=== PATIENT | male | born 1985 | race Caucasian/White ===

== ENCOUNTER 2023-05-08 10:02 | Emergency (ER) | payer OTHER, SELFPAY ==
[2023-05-08 10:38] VITALS: BP 113/78; PULSE 86; RESP 20; TEMP 36.5; O2SAT 98; BMI 35.2
--- NOTE | 2023-05-08 12:46 | ED_ITS ---
HPI - GI Bleed General Date Seen: 05/08/23 Chief complaint: GI Bleed Stated complaint: stomach pain,blood in stool Time Seen by Provider: 05/08/23 12:46 Source: patient, RN notes reviewed and old records reviewed Mode of arrival: ambulatory Limitations: no limitations History of Present Illness HPI Narrative: Brice is a very pleasant 37-year-old gentleman with a history of colitis as a child who presents to the [facility] with blood in his stool. Patient notes the onset of dark stools with dark blood on May 03. This is associated with pain in the right periumbilical area. He notes no fever or chills. He states that when he was a young person he was diagnosed with colitis but never really had any follow-up after that. He states that he has had chronic diarrhea for 16 years and he takes Imodium which helps. He notes no recent trauma, fevers or chills, painful urination. He states that in spite of Imodium use he is getting very loose stools. He has not been lightheaded nor has he had a rapid heart rate or chest pain. His primary MD is Dr. Mccoy in [place]. Brice endorses daily alcohol use-beer only. Denies any history of withdrawal type symptoms. He does smoke as well. Related Data Home Medications Medication Instructions Recorded Confirmed dextroamphetamine-amphetamine ER 1 cap PO DAILY 05/08/23 05/08/23 30 mg 24hr capsule,extend release fluoxetine 10 mg capsule 10 mg PO DAILY 05/08/23 05/08/23 omeprazole 20 mg capsule,delayed 20 mg PO DAILY 05/08/23 05/08/23 release Previous Rx's Medication Instructions Recorded hydrocodone 5 mg-acetaminophen 325 1 tab PO Q4-6H PRN pain #14 tabs 05/08/23 mg tablet Allergies Allergy/AdvReac Type Severity Reaction Status Date / Time amoxicillin Allergy Verified 05/08/23 13:45 ceclor Allergy Uncoded 05/08/23 13:45 Review of Systems Status of ROS: Reports: 10 or more systems reviewed and unremarkable except as noted in History and below Const: Denies: fever, chills or fatigue Cardio: Denies: chest pain, edema, swelling of feet/ankles, lightheadedness or shortness of breath with exertion Resp: Denies: shortness of breath or cough GI: Reports: abdominal pain, diarrhea and blood in stool; Denies: nausea or vomiting : Denies: painful urination Musculo: Denies: back pain Endo: Denies: fatigue [facility] Social History Smoking Status: Former smoker Do you use any of these nicotine containing products: None Second hand tobacco smoke exposure: No How often do you have a drink containing alcohol: 4 or more times a week How many standard drinks containing alcohol do you have on a typical day: 3 or 4 How often do you have six or more drinks on one occasion: Never AUDIT-C Alcohol total score: 5 Non-prescribed substance use: denies use service: No Exam Narrative: Exam Narrative: Alert and oriented. No acute distress. Good color. Heart with regular rate and rhythm and lungs are clear. Abdomen is soft. There is tenderness with palpation just right of the umbilicus and somewhat inferior. No rebound tenderness here. Moving all extremities. Bowel sounds are present and normal. Const: Vital Signs, click to edit/add: Vital Signs - 24 hr 05/08/23 10:38 05/08/23 16:00 Temperature 97.7 F Pulse Rate [Pulse Oximeter] 86 74 Respiratory Rate 20 18 Blood Pressure [Ri ght Upper Arm] 113/78 128/95 H Pulse Oximetry 98 99 Oxygen Delivery Me thod Nasal Cannula Room Air Documenting provider has reviewed patient's vital signs: yes Course Course ED Course: Differential diagnosis includes but is not limited to colitis common ulcerative colitis, Crohn's disease, diverticulitis, gastroenteritis. Place IV and give 1 L of normal saline, lab draw to include CBC, comprehensive, CRP, lipase, type and screen. Plan on abdominal and pelvic CT with IV contrast at this time. Reevaluation(s) Reevaluation #1: Patient received 1 L of normal saline. Vital Signs Vital signs: Initial Vital Signs Temperature 97.7 F 05/08/23 10:38 Temperature Source Temporal Artery Scan 05/08/23 10:38 Pulse Rate 86 05/08/23 10:38 Pulse Rhythm Regular 05/08/23 10:38 Respiratory Rate 20 05/08/23 10:38 Blood Pressure 113/78 05/08/23 10:38 Blood Pressure Mean 89 05/08/23 10:38 Blood Pressure Position Sitting 05/08/23 10:38 Pulse Oximetry 98 05/08/23 10:38 Oxygen Delivery Method Nasal Cannula 05/08/23 10:38 Vital Signs Temperature 97.7 F 05/08/23 10:38 Pulse Rate 86 05/08/23 10:38 Respiratory Rate 20 05/08/23 10:38 Blood Pressure 113/78 05/08/23 10:38 Pulse Oximetry 98 05/08/23 10:38 Oxygen Delivery Method Nasal Cannula 05/08/23 10:38 Temperature 97.7 F 05/08/23 10:38 Pulse Rate 74 05/08/23 16:00 Respiratory Rate 18 05/08/23 16:00 Blood Pressure 128/95 H 05/08/23 16:00 Pulse Oximetry 99 05/08/23 16:00 Oxygen Delivery Method Room Air 05/08/23 16:00 Medications Administered Medications: Discontinued Medications Generic Name Dose Route Start Last Admin Trade Name Freq PRN Reason Stop Dose Admin Sodium Chloride 1,000 mls @ 1,000 mls/hr 05/08/23 12:58 05/08/23 15:07 0.9 % Sodium Chloride 1000 Ml IV 05/08/23 13:57 Infused .Q1H DEYSI Infusion MDM - GI Bleed MDM Narrative Medical decision making narrative: 1. Abdominal pain with Blood in stool-hemoglobin reassuring at 16. Patient had noted dark stools since May 03 and blood in the stool yesterday. Abdominal pain associated with this but CT only showed diverticulosis without evidence of diverticulitis. I did speak with surgeon on-call at this time would like to avoid antibiotics but does suggest recheck with primary MD for CBC for both detection of leukocytosis and anemia. Patient will also need to be scheduled for outpatient colonoscopy. I did give patient small amount of Vicodin 07/3250 tab p.o. Q 4-6 hours p.r.n. pain 14. Sent to his pharmacy. 2. Disposition-home at this time. Patient is already taking omeprazole and I suggest he continue to do so. Need to follow-up with primary MD for recheck. If he develops fever, worsening pain, more blood in stool I would ask him to return to the emergency room for further evaluation. Medical Records Attestation: I reviewed the patient's medical records. Lab Data Attestation: I reviewed the patient's lab results. Labs: Lab Results 05/08/23 Range/Units 13:13 WBC 7.62 (4.50-11.00) K/uL RBC 5.25 (4.30-5.90) m/uL Hgb 16.0 (13.5-17.5) gm/dL Hct 48.2 (37.0-53.0) % MCV 92 (80-100) fL MCH 31 (26-34) pg MCHC 33 (32-36) gm/dL RDW Coeff of Sydnee 12.6 (11.5-15.5) % Plt Count 320 (140-440) K/uL Neut % (Auto) 60.6 (42.0-72.0) % Lymph % (Auto) 30.8 (20-44) % Finney % (Auto) 7.3 (0.0-11.0) % Eos % (Auto) 0.9 (0.0-7.0) % Baso % (Auto) 0.3 (0.0-3.0) % Neut # (Auto) 4.61 (1.7-7.0) K/uL Lymph # (Auto) 2.35 (0.90-2.90) K/uL Finney # (Auto) 0.60 (0.00-0.90) K/UL Eos # (Auto) 0.07 (0.00-0.50) K/uL Baso # (Auto) 0.02 (0.00-0.30) K/uL Abs Immat Gran (auto) 0.01 (0.00-0.30) K/uL Imm/Tot Granulo (auto) 0.1 % Sodium 139 (135-149) mmol/L Potassium 5.0 (3.6-5.1) mmol/L Chloride 105 (96-114) mmol/L Carbon Dioxide 22 (20-32) mmol/L Anion Gap 12 (7-15) mEq/L BUN 12 (5-24) mg/dL Creatinine 0.8 (0.5-1.5) mg/dL Estimated Creat Clear 130.54 Estimated GFR 117 ml/min Glucose 103 (60-115) mg/dL Calcium 9.2 (8.4-10.6) mg/dL Total Bilirubin 0.5 (0.1-1.5) mg/dL AST 31 (12-35) U/L ALT 35 (4-50) U/L Alkaline Phosphatase 64 (40-150) U/L C-Reactive Protein 0.6 (0.5-1.0) mg/dL Total Protein 9.0 H (6.0-8.3) g/dL Albumin 5.1 H (3.3-5.0) g/dL Lipase 97 (23-300) U/L Blood Type A Positive Antibody Screen NEGATIVE Imaging Data CT scan - abdomen: Attestation: I have reviewed the pertinent imaging results. Radiologist's impression: Lower chest: Minimal discoid atelectasis right middle lobe. Liver: Mildly decreased density liver diffusely without focal intrahepatic lesion. Gallbladder and bile ducts: Unremarkable. No stones or inflammation. No biliary dilatation. Spleen: Unremarkable. Normal in size without mass. Pancreas: Unremarkable. No mass or inflammation. Adrenal glands: Unremarkable. No nodules. Kidneys: Unremarkable. No masses, stones, or hydronephrosis. Vasculature: Unremarkable. GI tract: The stomach is decompressed. No dilated loops of large or small intestine with colonic diverticulosis noted. Pelvis: Mild distention of the bladder. Bones: Degenerative disc disease L5-S1. IMPRESSION: 1. Colonic diverticulosis without CT evidence of diverticulitis. 2. Mild hepatic steatosis. Discharge Plan Discharge Clinical Impression: Bloody stool Abdominal pain Qualifiers: Abdominal location: right lower quadrant Qualified Code(s): R10.31 - Right lower quadrant pain Patient Disposition: Home, Self-Care Condition: Unchanged Additional Instructions: 1. Continue omeprazole. 2. You may use Vicodin which is a combination of Tylenol and hydrocodone sparingly for abdominal pain. 3. Follow-up with your primary care physician this week for recheck. Surgeons suggests a recheck of the CBC to check for both leukocytosis and low hemoglobin. You will need to be scheduled for outpatient colonoscopy. Return to the emergency room if you have worsening symptoms-especially sudden increased bleeding, increased abdominal pain, vomiting or fever. Prescriptions: New hydrocodone-acetaminophen 5-325 mg tablet 1 tab PO Q4-6H PRN (Reason: pain) Qty: 14 0RF No Action fluoxetine 10 mg capsule 10 mg PO DAILY dextroamphetamine-amphetamine 30 mg capsule,extended release 24hr 1 cap PO DAILY omeprazole 20 mg capsule,delayed release(DR/EC) 20 mg PO DAILY Follow Up/Referrals: Joe Mccoy MD [Primary Care Provider] - Stand Alone Forms: MyHealth Info Instructions
--- NOTE | 2023-05-08 12:57 | CRLHL7_ITS ---
For Patients: As a result of the Century Cures Act, medical imaging exams and procedure reports are released immediately into your electronic medical record. You may view this report before your referring provider. If you have questions, please contact your health care provider. INDICATION: Mid abdominal pain and bloody stools TECHNIQUE: Axial images were obtained from the diaphragm to the pubic symphysis. Reformats were obtained in the coronal and sagittal plane. IV Contrast: 120 cc Isovue 370 Oral Contrast: None COMPARISON: None. FINDINGS: Lower chest: Minimal discoid atelectasis right middle lobe. Liver: Mildly decreased density liver diffusely without focal intrahepatic lesion. Gallbladder and bile ducts: Unremarkable. No stones or inflammation. No biliary dilatation. Spleen: Unremarkable. Normal in size without mass. Pancreas: Unremarkable. No mass or inflammation. Adrenal glands: Unremarkable. No nodules. Kidneys: Unremarkable. No masses, stones, or hydronephrosis. Vasculature: Unremarkable. GI tract: The stomach is decompressed. No dilated loops of large or small intestine with colonic diverticulosis noted. Pelvis: Mild distention of the bladder. Bones: Degenerative disc disease L5-S1. IMPRESSION: 1. Colonic diverticulosis without CT evidence of diverticulitis. 2. Mild hepatic steatosis. Please note that all CT scans at this facility use dose modulation, iterative reconstruction, and/or weight-based dosing when appropriate to reduce radiation dose to as low as reasonably achievable. Dictated by Mani Medley MD @ 05/08/2023 3:31:39 PM (Electronically Signed)
[2023-05-08 13:25] LABS: Basophils Absolute Auto 0.02 K/uL (0.00-0.30); Basophils Percent Auto 0.3 % (0.0-3.0); Eosinophils Absolute Auto 0.07 K/uL (0.00-0.50); Eosinophils Percent Auto 0.9 % (0.0-7.0); Hematocrit 48.2 % (37.0-53.0); Immature Granulocytes Abs Auto 0.01 K/uL (0.00-0.30); Immature Granulocytes Pct Auto 0.1 %; Lymphocytes Absolute Auto 2.35 K/uL (0.90-2.90); Lymphocytes Percent Auto 30.8 % (20-44); Mean Corpuscular HGB Conc 33 gm/dL (32-36); Mean Corpuscular Hemoglobin 31 pg (26-34); Mean Corpuscular Volume 92 fL (80-100); Monocytes Percent Auto 7.3 % (0.0-11.0); Neutrophils Absolute Auto 4.61 K/uL (1.7-7.0); Neutrophils Percent Auto 60.6 % (42.0-72.0); Platelet Count* 320 K/uL (140-440); RDW Coefficient of Variation % 12.6 % (11.5-15.5); Red Blood Count 5.25 m/uL (4.30-5.90); White Blood Count* 7.62 K/uL (4.50-11.00)
[2023-05-08 13:28] LABS: Slide Review Reflex No
[2023-05-08 13:36] LABS: Albumin* 5.1 g/dL (3.3-5.0); Chloride* 105 mmol/L (96-114); Sodium* 139 mmol/L (135-149)
[2023-05-08 13:39] LABS: Bilirubin Total* 0.5 mg/dL (0.1-1.5); Creatinine* 0.8 mg/dL (0.5-1.5); Est. Creatinine Clearance* 130.54; Estimated Glomerular Filt Rate 117 ml/min
[2023-05-08 13:40] LABS: Alanine Aminotransferase* 35 U/L (4-50); Alkaline Phosphatase* 64 U/L (40-150); Anion Gap 12 mEq/L (7-15); Aspartate Amino Transferase* 31 U/L (12-35); Blood Urea Nitrogen* 12 mg/dL (5-24); Calcium* 9.2 mg/dL (8.4-10.6); Carbon Dioxide* 22 mmol/L (20-32); Glucose* 103 mg/dL (60-115); Lipase* 97 U/L (23-300)
[2023-05-08 13:42] LABS: C Reactive Protein* 0.6 mg/dL (0.5-1.0)
[2023-05-08] MEDS: 0.9 % SODIUM CHLORIDE 1000 ml 1,000 ML IV (13:47)
[2023-05-08 16:00] VITALS: BP 128/95; PULSE 74; RESP 18; O2SAT 99
== END 2023-05-08 16:30 | disposition home or self-care (01) ==
PROVIDERS: Emergency Provider Family Medicine; PCP Family Medicine
DX: K92.1 Melena (principal); R10.9 Unspecified abdominal pain
CPT/HCPCS: 36415; 74177; 80053; 83690; 85025; 86140; 86850; 86900; 86901; 96360; 99284; 99285; J7030; Q9967